=== PATIENT | male | born 1955 | race Caucasian/White ===

== ENCOUNTER → 2017-04-24 | Outpatient (CLI) | payer OTHER ==
[~2017-04-24] MED LIST: ARMOUR THYROID30 MG PO; ARTIFICIAL SALIVA PO; ASPIR 8181 MG PO; BACTRIM DS TAB1 EACH PO; BASAGLAR K100 UNIT/1 SUB-Q; BUMEX1 MG PO; C-PAP; CPAP INH; DIFLUCAN200 MG PO; DIGOX125 MCG PO; DILTIAZEM 24HR240 MG PO; DOXYCYCLINE100 MG PO; FISH OIL 1,4001 EACH PO; FLOMAX0.4 MG PO; FLONASE 50 MCG/16 GM NOSE; GLUCOPHAGE500 MG PO; HUMALOG100 UNIT/1 SUB-Q; L-ARGININE1000 MG PO; LANTUS100 UNIT/1 SUB-Q; LASIX40 MG PO; LEVAQUIN500 MG PO; LEVOTHROID (S100 MCG PO; LEVOTHROID(SY175 MCG PO; LIDOCAINE 1% IM; LOSARTAN POTASS50 MG PO; MAGNESIUM500 MG PO; MONTELUKAST SOD10 MG PO; MULTIVITAMINS1 EAC1 PO; MYCOSTATIN 500,1 TAB PO; NORCO 5-325 TA1 EACH PO; NP THYROID30 MG PO; PAIN RELIEF650 MG PO; PROTONIX40 MG PO; ROCEPHIN1 G1 IM; SPIRONOLACTONE25 MG PO; SURFAK240 MG PO; SYMBICORT 16010.2 GM INH; ULTRAM50 MG PO; URSODIOL300 MG PO; VITAMIN C1000 MG PO; VITAMIN D35000 UNI1 PO; VITAMIN D5000 UNIT PO; VITAMIN E1000 UNI1 PO; XOPENEX1.25 MG/3 INH; ZINC50 M1 PO
== END | disposition disaster alternative care site (69) ==
LOC: GRAD 13:52
DX: R13.10 Dysphagia, unspecified (principal)

== ENCOUNTER → 2017-05-04 | Day surgery (SDC) | payer OTHER ==
[~2017-05-04] VITALS: Ht 193 cm; Wt 102.5 kg
== END ==
LOC: GPOC 04-27 15:00 → GEND 06:58
PROC: 0DB88ZX Excision of Small Intestine, Via Natural or Artificial Opening Endoscopic, Diagnostic (ICD-10-PCS; principal; 2017-05-04)
PROC: 0DB58ZX Excision of Esophagus, Via Natural or Artificial Opening Endoscopic, Diagnostic (ICD-10-PCS; 2017-05-04)
PROC: 0DB68ZX Excision of Stomach, Via Natural or Artificial Opening Endoscopic, Diagnostic (ICD-10-PCS; 2017-05-04)
PROC: 0D758ZZ Dilation of Esophagus, Via Natural or Artificial Opening Endoscopic (ICD-10-PCS; 2017-05-04)
DX: K31.9 Disease of stomach and duodenum, unspecified (principal); K21.9 Gastro-esophageal reflux disease without esophagitis; K59.00 Constipation, unspecified; I10 Essential (primary) hypertension; E11.9 Type 2 diabetes mellitus without complications; M19.90 Unspecified osteoarthritis, unspecified site; E07.9 Disorder of thyroid, unspecified; G47.30 Sleep apnea, unspecified; N41.9 Inflammatory disease of prostate, unspecified; Z98.890 Other specified postprocedural states; Z98.41 Cataract extraction status, right eye; Z98.42 Cataract extraction status, left eye
CPT/HCPCS: C1726; J2001; J7030